=== PATIENT | female | born 1995 | race Caucasian/White ===

== ENCOUNTER 2024-11-04 10:57 | Emergency (ER) | payer OTHER, SELFPAY ==
[2024-11-04 11:04] VITALS: BP 146/102; PULSE 66; O2SAT 99
[2024-11-04 11:05] VITALS: BP 146/106; PULSE 80; RESP 16; TEMP 36.9; O2SAT 98
--- NOTE | 2024-11-04 11:12 | XR_ITS ---
FINAL REPORT CLINICAL HISTORY: Injury, right 5th metacarpal FINDINGS: RIGHT HAND 2 views were obtained. There is no acute fracture or dislocation. Visualized joint spaces are normally aligned. Soft tissues are unremarkable. IMPRESSION: No acute bony abnormality. Reviewed, Interpreted and Dictated by Sarah Moon MD Transcribed by Amber Luna Authenticated and [facility]
--- NOTE | 2024-11-04 11:13 | [facility].EDGENADL ---
Discharge Plan Disposition Patient Disposition: Home, Self-Care Referrals Follow up/Referrals: Provider,Referral, [Primary Care Provider, Medical] - See instructions Activity Restrictions/Add. Instructions Additional Instructions/Restrictions: There are no fractures noted on your x-rays today. You have swelling and bruising in this area that will likely improve over the next few days. Continue to move the hand and wrist is much as he can to keep it from getting stiff. You can use Tylenol and ibuprofen to help with your pain. If you develop any new or worsening symptoms, or if you become concerned for your health for any reason, return to the emergency department for evaluation Clinical Impressions Clinical Impression: Hematoma of right hand Print Language Print Language: Slovenian Discharge ED Provider: Nash Mcelroy General Adult HPI General Chief complaint: Extremity Injury, Upper Stated complaint: R Hand Pain and swelling Time Seen by Provider: 11/04/24 11:07 Mode of Arrival: Ambulatory Source of Information: Patient Description of Symptoms (Recalled from ER Triage Doc. by RN): pt states about 3hr [employer] she hit her R hand on the stearing wheel. pt presents with edema and ecchymosis to her R hand along the side of her little finger. pt has not taken anything for the pain. pt reports her pain is 8/10 and constant. pt has full ROM in her wrist and digits. History of Present Illness HPI narrative: Ronnie Turner is a 29-year-old right handed female who presents to the emergency department for complaints of an injury to her right hand. Patient states that approximately 2 hours ago, she received information on the phone and then hit her hand on the steering wheel. She states that she hit the back of her hand on the steering wheel intentionally and has had pain over the fifth metacarpal area ever since. She has noted swelling and bruising to this area. She states that is difficult to flex her 4th and 5th digits. She denies any numbness or tingling. She denies any other injuries or trauma. She took a Tylenol when this initially happened but states that it has not helped. Related Data Allergies Allergy/AdvReac Type Severity Reaction Status Date / Time metoclopramide (From Reglan) AdvReac Anxiety Verified 11/04/24 11:10 [facility] Disclaimer: The information contained in this section may have been updated after the patient was seen, as this information can be updated by other users. Social History Smoking Status: Current every day smoker alcohol intake: never current occupational status: employed Travel in the last 8 weeks?: None ROS Obtained: Yes Systems reviewed as appropriate & no additional complaints except as documented Physical Exam General General appearance: alert and in no apparent distress Head Head exam: atraumatic Eye Eye exam: Present normal appearance ENT ENT exam: Present normal external ear exam Neck Neck exam: Present full ROM Chest Chest inspection: Present symmetric chest wall rise Respiratory Respiratory exam: Present normal lung sounds bilaterally; Absent respiratory distress Cardiovascular Cardiovascular exam: Present regular rate and normal rhythm Abdominal Exam Abdominal exam: Present soft; Absent tenderness or guarding Extremities Exam Extremities exam: Present normal inspection Expanded Upper Extremity Exam Right: Hand L/R back image:  1. Swelling, ecchymosis, tenderness Back Exam Back exam: Present normal inspection Neurological Exam Neurological exam: Present alert and oriented X3 Psychiatric Psychiatric exam: Present normal affect Skin Skin exam: Present warm and dry Medical Decision Making Medical Records Screening: Per USPSTF and CDC recommendations, given the prevalence of disease in our region, it is our hospital?s policy to screen for HIV and viral Hepatitis for all patients aged 18 and over and those with ongoing risk factors. Shahbaz Inquiry Pt receiving controlled substance: No Vital Signs: 11/04/24 11:04 11/04/24 11:05 11/04/24 12:35 Temperature 98.4 F Temperature Source Oral Pulse Rate 66 67 Pulse Rate [Left] 80 Respiratory Rate 16 Blood Pressure 146/102 H 130/88 Blood Pressure [Left Arm] 146/106 H Blood Pressure Mean [Left Arm] 119 Blood Pressure Source [Left Arm] Automatic Cuff Blood Pressure Position [Left Arm] Sitting 02 Sat by Pulse Oximetry 99 98 98 Oxygen Delivery Method Room Air Room Air Orders (Tests/Meds): ED MEDICATIONS Discontinued Medications Generic Name Dose Route Start Last Admin Trade Name Freq PRN Reason Stop Dose Admin Ibuprofen 800 mg 11/04/24 11:13 11/04/24 11:18 Ibuprofen 800 Mg Tablet PO 11/04/24 11:14 800 mg ONCE ONE Administration ORDERS Category Date Time Status Hand XR right 2 views [XR hand RT 2V] Stat Exams 11/04/24 11:12 Taken Medical Decision Narrative: Ronnie Turner is a 29-year-old right handed female who presents to the emergency department for complaints of an injury to her right hand. Patient states that approximately 2 hours ago, she received information on the phone and then hit her hand on the steering wheel. She states that she hit the back of her hand on the steering wheel intentionally and has had pain over the fifth metacarpal area ever since. She has noted swelling and bruising to this area. She states that is difficult to flex her 4th and 5th digits. She denies any numbness or tingling. She denies any other injuries or trauma. She took a Tylenol when this initially happened but states that it has not helped. On arrival, patient is hypertensive with blood pressure 146/106, hemodynamically stable with normal heart rate, afebrile, saturation 98% SpO2. Physical exam, as stated above, revealed an overall well-appearing female in no distress. She has some tenderness and swelling and bruising over the right fifth metacarpal area on the dorsal aspect of her hand. Flexor and extension function of all fingers appears to be intact, however it is somewhat limited with flexion at the base of the 4th and 5th fingers likely secondary to pain. Less than 2-second capillary refill. Sensation grossly intact. 2+ radial pulses. Differential diagnosis includes, but is not limited to: Fracture, dislocation, hematoma, soft tissue injury, among others. The most morbid conditions were considered and workup was based on these. Workup in the emergency room included: A right hand x-rays. Patient was administered 800 g of ibuprofen. X-ray imaging interpreted by me personally. No acute fracture or dislocation. There is soft tissue swelling along the lateral aspect of the fifth metacarpal. See final radiology report for details. There is low concern for neurovascular compromise and patient likely has a hematoma as the source of her symptoms. Will recommend Tylenol and ibuprofen. No indication for splinting at this time. Recommended ice/heating pads to help with symptoms. Return precautions were given. All questions were answered. She demonstrated understanding and was in agreement this plan. She was then discharged to the emergency department in stable condition. Critical Care Critical Care Time Critical Care Time: No
[2024-11-04] MEDS: IBUPROFEN 800 MG TABLET PO (11:18)
--- OUTSIDE RECORDS SUMMARY | 2024-11-04 11:37 | XMS_ITS | Clinical Summary ---
Author Organization Drive [facility] Address [address] [place] [phone] Phone Care Team Providers Care Lamp Shades Supervisor Name Role Phone Keenan FLORES, Graciela Gray Primary Care Physic shin Conditions or Problems Problem Name Problem Code Onset Date Status Entry Date Provider Comment Standard Description Annotate Myocardial infarction ([place]) 99953401 (SNOMED CT) 04/08 Active 04/08 Chalo Marie MD Myocardial infarction Body mass index (BMI) 24.0-24.9; adult Z68.24 (ICD-10-CM ) 04/08 Active 04/08 Chalo Marie MD Body mass index [BMI] 24.0-24.9, adult Body mass index (BMI) 25.0-25.9; adult Z68.25 (ICD-10-CM ) 11/03 Correction 11/03 Chalo Marie MD Body mass index [BMI] 25.0-25.9, adult Pulmonary nodule 605948956 (SNOMED CT) 04/08 Active 04/08 Chalo Marie MD Solitary nodule of lung Heart failure with Left Ventricular Ejection Fraction (LVEF) 41-49% 08876699 (SNOMED CT) 04/08 Active 04/08 Chalo Marie MD Heart failure Body mass index (BMI) 25.0-25.9; adult Z68.25 (ICD-10-CM ) 11/03 Removed 11/03 Graciela Hussein APRN Body mass index [BMI] 25.0-25.9, adult Body mass index (BMI) 31.0-31.9; adult Z68.31 (ICD-10-CM ) 08/19 Correction 08/19 [facility] Body mass index [BMI] 31.0-31.9, adult Indigestion 958306279 (SNOMED CT) 11/03 Active 11/03 [facility] Indigestion Annual physical examination, general 667154904 (SNOMED CT) 11/03 Active 11/03 Graciela [facility] General examination of patient Tobacco User 700815617 (SNOMED CT) 08/19 Active 08/19 [facility] Tobacco user Tobacco abuse 84928166 (SNOMED CT) 08/19 Active 08/19 [facility] Tobacco dependence syndrome Body mass index (BMI) 31.0-31.9; adult Z68.31 (ICD-10-CM ) 08/19 Removed 08/19 [facility] Body mass index [BMI] 31.0-31.9, adult Body mass index (BMI) 33.0-33.9; adult Z68.33 (ICD-10-CM ) 03/17 Correction 03/17 [facility] Body mass index [BMI] 33.0-33.9, adult Opioid dependence, uncomplicate d 96084193 (SNOMED CT) 08/19 Active 08/19 [facility] Opioid dependence Health screening 35631481 (SNOMED CT) 04/25 Inactive 04/25 Eli Guardado [employer]ARM EQUIPMENT MECH[employer]IC APPRENTICE Specialized medical examination Counseling for nutrition Z71.3 (ICD-10-CM ) 04/25 Inactive 04/25 Eli Guardado FARM EQUIPMENT MECHANIC APPRENTICE Dietary counseling and surveillance Epigastric pain 22992712 (SNOMED CT) 04/25 Inactive 04/25 Eli Guardado FARM EQUIPMENT MECHANIC APPRENTICE Epigastric pain Cyst 108162711 (SNOMED CT) 03/17 Inactive 03/17 Eli Guardado APRN Cyst of skin Body mass index (BMI) 33.0-33.9; adult Z68.33 (ICD-10-CM ) 03/17 Removed 03/17 Eli Guardado APRN Body mass index [BMI] 33.0-33.9, adult Health screening 08632402 (SNOMED CT) 03/17 Inactive 03/17 Eli Guardado MARK Specialized medical examination Need for prophylactic immunotherap y 346022363 (SNOMED CT) 03/17 Inactive 03/17 Eli Guardado [employer]ARM EQUIPMENT MECHANIC APPRENTICE Prophylactic immunotherapy Establish care or get acquainted visit 078277951 (SNOMED CT) 03/17 Inactive 03/17 Eli Guardado MARK Procedure carried out on subject Family History of Alcoholism 218474777 (SNOMED CT) 03/17 Active 03/17 Eli Guardado MARK Family history of alcoholism Medications Medication Instructions Start Date Stop Date Generic Name NDC Provider CARVEDILOL 3.125 MG TABS Take 1 tablet by mouth twice a day carvedilol 43755295056 Domonique Llamas APRN CARVEDILOL 3.125 MG TABS carvedilol 10148529726 Chalo Marie MD AMOXICILLIN-POT CLAVULANATE 875-125 MG TABS Take 1 tablet by mouth twice a day amoxicillin-pot clavulanate 28452938596 Chalo Marie MD ATORVASTATIN CALCIUM 10 MG TABS Take 1 tablet by mouth every evening atorvastatin 27468540734 Chalo Marie MD ASPIRIN 81 MG TBEC Take 1 tablet by mouth once a day aspirin 06919019201 Chalo Marie MD CARVEDILOL 3.125 MG TABS Take 1 tablet by mouth twice a day carvedilol 92849024919 Chalo Marie MD CARVEDILOL 3.125 MG TABS carvedilol 63345478253 Gretchen Triny MA PEPCID AC MAXIMUM STRENGTH 20 MG TABS Take 1 tablet by mouth twice a day as needed FOR HEARTBURN OR REFLUX famotidine 75000126233 [facility] 800 MG TABS Take 1 tablet by mouth every six hours as needed for pain for 5-7 days ibuprofen 51288319574 Vanessa Guerrero DMD Augmentin 500-125 mg tablet Take 1 tablet by mouth twice a day amoxicillin-pot clavulanate 00291109665 Vanessa Guerrero DMD AMOXICILLIN 500 MG CAPS Take 1 capsule by mouth three times a day amoxicillin 37247178726 Vanessa Guerrero DMD IBU 800 MG TABS Take 1 tablet by mouth every eight hours as needed for pain Take with food ibuprofen 08763361339 Vanessa Guerrero DMD ADDERALL XR 30 MG [id number] Take 1 capsule by mouth every morning dextroamphetami ne-amphetamine 22300425399 [facility] AL[facility] 0.5 MG TABS Take 2 tablet by mouth once a day as needed alprazolam 45718447602 [facility] CLONIDINE HCL 0.1 MG TABS Take 1 tablet by mouth once a day clonidine hcl 51263983028 [facility] TRAZODONE HCL 100 MG TABS Take 1 tablet by mouth every night trazodone 57929899057 [facility] SUBOXONE 8-[address] 2 tablet under tongue once a day buprenorphine-n aloxone 34683137303 [facility] PLUS 27-1 MG TABS Take 1 tablet by mouth once a day or covered equivalent pnv,calcium 52-szwf-aeqrv acid 16304406111 [facility] OMEPRAZOLE 20 MG CPDR TAKE 1 CAPSULE BY MOUTH ONCE A DAY OMEPRAZOLE 63774940994 Eli Guardado APRN TRAZODONE HCL 100 MG TABS TAKE 1 TABLET BY MOUTH EVERY NIGHT AT BEDTIME TRAZODONE HCL 77514850463 Eli Guardado APRN CLONIDINE HCL 0.1 MG TABS TAKE 1 TABLET BY MOUTH 1 TIME A DAY CLONIDINE HCL 70038244760 Eli Guardado APRN ALPRAZOLAM 0.5 MG TABS TAKE 2 TABLET BY MOUTH once A DAY NEEDED FOR ANXIety ALPRAZOLAM 49979027806 Eli Guardado APRN ADDERALL XR 30 MG [id number] TAKE 1 CAPSULE BY MOUTH EACH MORNING AMPHETAMINE-DEX TROAMPHETAMINE 93167482817 Eli Guardado APRN Medications Administered No information available. Allergies, Adverse Reactions, Alerts Allergy Name Reaction Description Start Date Severity Statu s Provider REGLAN Critical Active Eli summers APRN Results Date Name Value Unit Range Flag Description Lab Report: Comprehensive Me tabolic Panel LIPASE SERUM 13 U/L 13-60 lipase, serum NTL BILI TOT 0.4 mg/dL 0.1-1.3 bilirubi n, , total ALBUMIN 4.2 g/dL 3.5-5.2 Albumin [Mass/volume] in Serum or Plasma CO2 TOTAL 22 mmol/L 22-29 carbon diox joe, serum, total Office Visit: 24yro old fema le abdominal pain RM 11 H.PYLORI SCN negative Helicob acter pylori screen, serum Lab Report: LIPID PANEL WITH REFLEX TO DIRECT LDL, LIPID PANEL WITH REFL ... ANTI-HAV IGM REACTIVE NON-REACTI A Hepa titis A virus IgM Ab [Units/volume] in Serum HGBA1C 5.2 % OF TOTAL HGB % <5.7 N Hemoglobin A1c/Hemoglobin, total in Blood - % VIT D 25-OH 28 ng/mL 30-100 L 25-Hydrox ycalcifero l [Mass/volume] in Serum or Plasma TSH 0.75 u[iU]/m L N Thyrotropin [Units/volume] in Serum or Plasma HEP C AB NON-REACTIVE NON-REACTI N Hepa titis C virus Ab [Presence] in Serum HB CORE IGM NON-REACTIVE NON-REACTI N H epatitis B virus core IgG+IgM Ab [Presence] in Serum or Plasma by Immunoassay HBSAG NON-REACTIVE NON-REACTI N Hepat itis B virus surface Ag [Presence] in Serum or Plasma by Confirmatory method BASO % MANU 0.5 % N basophils as percent of blood leukocytes, manual count EOS % MANU 1.5 % N eosinophil s as percent of blood leukocytes, manual count LYMPH% P BLD 31.6 % N lymphocy sergio as percent of blood leukocytes ABS BASOS 50 {Cells} /uL 0-200 N Basophils [#/volume] in Blood ABS EOS 150 {Cells} /uL 15-500 N Eosinophils [#/volume] in Blood ABS MONOS 660 {Cells} /uL 200-950 N Monocytes [#/volume] in Blood ABSLYMPHCT 3160 {Cells} /uL 850-3900 N Lymphocytes [#/volume] in Blood ABS NEUTROPH 5980 CELLS/UL 10*3/uL 0800-0975 N Neutrophils [#/volume] in Blood PLATELETK/UL 268 THOUSAND/UL 10*3/uL 140-400 N platelet count OL-MCHC 34.3 g/dL 32.0-36.0 N mean corpus cular hemoglobin concentration, rbc RBC M/UL 5.09 MILLION/UL 10*6/uL 3.80-5.10 N red blood count WBC CT BLOOD 10.0 10*3/uL 3.8-10.8 N leukocy te count, blood SGPT (ALT) 13 U/L 6-29 N Alanine aminotransferase [Enzymatic activity/volume] in Serum or Plasma SGOT (AST) 13 U/L 10-30 N Aspartate aminotransferase [Enzymatic activity/volume] in Serum or Plasma ALK PHOS 52 U/L 31-125 N Alkaline phosphatase [Enzymatic activity/volume] in Blood BILI TOTAL 0.4 mg/dL 0.2-1.2 N Bilirubin. total [Mass/volume] in Serum or Plasma A/G RATIO 1.5 (calc) 1.0-2.5 N Albumin/ Globulin [Mass Ratio] in Serum or Plasma GLOBULIN TOT 3.0 G/DL (CALC) g/dL 1.9-3.7 N Globulin [Mass/volume] in Serum ALBUMIN EOP 4.5 g/dL 3.6-5.1 N Albumin [Mass/volume] in Serum or Plasma by Electrophoresis PROTEIN, TOT 7.5 g/dL 6.1-8.1 N Protein [Mass/volume] in Serum or Plasma CHLORIDE BLD 108 mmol/L 98-110 N chloride , blood BUN/CREAT NOT APPLICABLE (calc) 6-22 Urea nitrogen/Creatinine [Mass Ratio] in Serum or Plasma EGFR IF AFA 148 mL/min/ 1.73m2 >OR = 60 N Glomerular filtration rate/1.73 sq M.predicted among blacks [Volume Rate/Area] in Serum, Plasma or Blood by Creatinine-based formula (MDRD) EGFR 128 mL/min/ 1.73m2 >OR = 60 N Glomerular filtration rate/1.73 sq M.predicted [Volume Rate/Area] in Serum, Plasma or Blood by Creatinine-based formula (MDRD) GLUCOSE SER 80 mg/dL 65-99 N Glucose [Mass/volume] in Serum or Plasma NON-HDL CHOL 118 MG/DL (CALC) mg/dL <130 N cholesterol, non-HDL, total CHOL/HDL % 3.7 (calc) <5.0 N cholest ileana/HDL ratio, serum, percent LDL 102 MG/DL (CALC) mg/dL H Cholesterol in L DL [Mass/volume] in Serum or Plasma - mg/dL TRIGLYC TOT 72 mg/dL <150 N Triglycer joe [Mass/volume] in Serum or Plasma - mg/dL HDL 44 mg/dL >OR = 50 L Cholesterol in HDL [Mass/volume] in Serum or Plasma - mg/dL CHOLESTEROL 162 mg/dL <200 N Cholester ol [Mass/volume] in Serum or Plasma - mg/dL Lab Report: CBC WITH DIFF HYAL CAST UR 6 /[LPF] 0-2 H Hyaline casts [#/area] in Urine sediment by Microscopy low power field BACTERIA URN 4+ Negative A Bacteri a [#/area] in Urine sediment by Microscopy high power field MUCUS URINE 4+ Mucus [Pr esence] in Urine sediment by Light microscopy EPITH CELL U 4+ /LPF /[HPF] epitheli al cells, squamous, urine WBCS MICRO U 2 /HPF {Cells} /[HPF] 0-4 WBC urine on microscopy SPEC GR URIN 1.018 no units 1.001-1.035 Specific gravity of Urine by Test strip WBC DIPSTK U Negative Negative Leukoc yte esterase [Presence] in Urine by Test strip NITRITE UA Negative Negative Nitrite Urine UROBILINO UR Normal mg/dL {Ehrlic h_U}/dL <=1 urobilinogen, urine PROTEIN UR 100 mg/dL Negative A protein, total urine random PH URINE 5.0 pH 5.0-8.0 pH of Urine by Test strip RBC UR 1 /[HPF] 0-3 erythrocytes, urine, microscopic KETONES UR Negative Negative KETONES, URINE GLUCOSE UA 50 mg/dL Negative A Glucose [Mass/volume] in Urine by Test strip APPEARANCE U Cloudy Clear A Appearan ce of Urine UA COLOR Estella Color of Uri ne Lab Report: Human Chorionic Gonadotropin Quant ABO/RH A NEG blood type wi th RH factor Lab Report: CBC WITH DIFF BETA-HCG QN 1540 m[iU]/m L <5 H beta HCG, serum, quantitative EGFR NOT AFA 124 mL/min/ 1.73m2 >=60 Glomerular filtration rate/1.73 sq M.predicted among non-blacks [Volume Rate/Area] in Serum, Plasma or Blood by Creatinine-based formula (MDRD) CREATININE 0.67 mg/dL 0.51-1.30 Creatini ne [Mass/volume] in Serum or Plasma BUN 8 mg/dL 6-20 Urea nitrogen [Mass/volume] in Serum or Plasma BG RANDOM 90 mg/dL 74-100 Glucose [Mass/volume] in Blood CALCIUM 10.1 mg/dL 8.6-10.4 Calcium [Moles/volume] in Serum or Plasma ANION GAP 13 mmol/L 7-16 Anion gap 4 in Serum or Plasma CO2 22 mmol/L 22-29 Carbon dioxid e, total [Moles/volume] in Venous blood CHLORIDE 103 mmol/L 98-107 Chloride [Moles/volume] in Serum or Plasma POTASSIUM 3.7 mmol/L 3.5-5.0 Potassium [Moles/volume] in Serum or Plasma SODIUM 138 mmol/L 136-145 Sodium [Moles/volume] in Serum or Plasma EOS COUNT 0.1 X10(3)/MCL 10*3/mm 3 0.0-0.5 eosinophil count, blood MONOSCT AUTO 0.6 X10(3)/MCL 10*3/uL 0.0-1.3 Monocytes [#/volume] in Blood by Automated count LYMPH COUNT 2.4 X10(3)/MCL 10*3/mm 3 0.6-4.8 lymphocyte count, blood NEUTRO COUNT 7.7 X10(3)/MCL 10*3/mm 3 1.8-7.7 neutrophil count, blood % BASO AUTO 0.5 % basophils as percent of blood leukocytes, automated count EOSINOPHIL % 1.1 % Eosinoph ils/100 leukocytes in Blood by Manual count MONOCYTE % 5.5 % Monocytes/ 100 leukocytes in Blood by Automated count LYMPHCT AUTO 22.0 % 10*3/mm 3 Lymphocytes [#/volume] in Blood by Automated count PMN % 70.9 % Neutrophils/1 00 leukocytes in Blood by Automated count Lab Report: CBC MPV 12.3 fL 8.8-12.5 Platelet gwendolyn n volume [Entitic volume] in Blood by Dea PLATELETS 259 X10(3)/MCL 10*3/mm 3 155-369 Platelets [#/volume] in Blood by Automated count RDW 13.3 % <=14.9 Erythrocyte distribution width [Ratio] by Automated count MCHC 32.1 G/DL 30.7-35.5 MCHC [Mass/ volume] by Automated count MCH 28.2 pg 26.0-34.0 MCH [Entiti c mass] by Automated count MCV 87.8 fL 80.0-100.0 MCV [Entit ic volume] by Automated count HCT 43.0 % 34.0-45.0 Hematocrit [Volume Fraction] of Blood by Automated count HGB 13.8 g/dL 11.2-15.7 Hemoglobin [Mass/volume] in Blood RBC 4.90 X10(6)/MCL 10*6/mm 3 3.90-5.20 Erythrocytes [#/volume] in Blood by Automated count WBC 11.6 X10(3)/MCL 10*3/mm 3 3.7-10.3 H Leukocytes [#/volume] in Blood by Automated count Plan of Care Type Date Detail Referral [facility], [address] [place] [address] [address], [place], [address] Referral [facility], [address] [facility], [place], [address] Pending order H-pylori -Medica l Only 385[address] Pending order T1 CBC with diff Pending order T1 CMP Pending order T1 HGBA1c Pending order T1 Lipase Pending order T1 TSH reflex to free T4 Patient education Patient Educat ion Given Patient education Patient Educat ion Given Patient education Patient Educat ion Given Patient education Patient Educat ion Given Patient education Patient Educat ion Given Patient education Patient Educat ion Given Patient education Patient Educat ion Given Procedures Code Procedure Name Date Entry Date [facility] [id number] Medication Reconciliation [id number] Former smoker 4004F Patient screened for tobacco use and received tobacco cessation intervention CPT-3074F Most recent systolic blood pressure <130 mm Hg CPT-3078F Most recent diastoli c blood pressure <80 mm Hg CPT-3074F Most recent systolic blood pressure <130 mm Hg CPT-3078F Most recent diastoli c blood pressure <80 mm Hg [id number] Medication Reconciliation SCT-[id number] Giving encouragement to exercise [id number] Dietary management education/guidance/counseling CPT-3074F Most recent systolic blood pressure <130 mm Hg CPT-3078F Most recent diastoli c blood pressure <80 mm Hg CPT II 4004F Patient screened for tobacco use and received tobacco cessation intervention [id number] Medication Reconciliation SCT-[id number] Giving encouragement to exercise SCT-[id number] Medication Reconciliation CPT-3074F Most recent systolic blood pressure <130 mm Hg CPT-3078F Most recent diastoli c blood pressure <80 mm Hg [facility] 512 T1 Hep A IGM [facility] 4848 T1 Hep B Core IgM Antibody 2 [facility] 499 T1 Hep B Surf Ab Qual HBsAb [facility] 8475 T2 Hep B Surf Ab Quant HBsAb [facility] 498 T1 Hep B Surf AG HBsAg w. Refl [facility] 8472 T1 Hep C Ab [facility] 6399 T1 CBC with diff [facility] 90597 T1 CMP [facility] 496 T1 HGBA1c [facility] 58792 T1 Lipid Panel [facility] 10409 T1 TSH reflex to free T4 202 [facility] 07851 T2 Vitamin D 25 Hydroxy 2019 CPT-01696 H-pylori -Medical Only [address] [facility] [id number] Medication Reconciliation CPT-3074F Most recent systolic blood pressure <130 mm Hg CPT-3078F Most recent diastoli c blood pressure <80 mm Hg SCT-[id number] Giving encouragement to exercise SCT-[id number] Dietary management education/guidance/counseling [facility] 6399 T1 CBC with diff [facility] 67158 T1 CMP [facility] 496 T1 HGBA1c [facility] 606 T1 Lipase [facility] 44658 T1 TSH reflex to free T4 201 11/07/[address] [facility] Dermat[facility] Vital Signs Date Name Value Unit Description BMI (Body Mass Index) 24.05 kg/m2 Bod y Mass Index (Ratio) Body Temperature 97 [degF] temperat ure E&M Body Temperature 36.11 Ginny temperat ure in centigrade E&M BP Diastolic 79 mm[Hg] blood pressu re, diastolic BP Systolic 125 mm[Hg] blood pressur e, systolic BSA (Body Surface Area) 1.73 b ramiro surface area Heart Rate 64 /min pulse rate Height 65 [in_us] height E&M Height 165.1 cm height in cent imeters E&M Weight Measured 144 [lb_av] weight E& M Weight Measured 144 [lb_av] weight E& M Weight Measured 65.45 kg weight in kilograms E&M Respiratory Rate 18 /min respirat ory rate E&M Immunizations No information available. Advance Directives No information available.
--- OUTSIDE RECORDS SUMMARY | 2024-11-04 11:37 | XMS_ITS | Clinical Summary ---
Author Organization [facility] Address [facility] [place] [address] Care Team Providers Care Assistant Boys Track Coach Name Role Phone Pcp, No Primary Care Provider [phone] Source Comments This information has been disclosed to you from confidential records protectedfrom disclosure by state law. You shall make no further disclosure of thisinformation without the specific, written, and informed release of theindividual to whom it pertains, or as otherwise permitted by law. A generalauthorization for the release of medical or other information is not sufficientfor the purposes of therelease of HIV test results or diagnoses. [id number] Allergies No known active allergies Medications No known medications Social History Tobacco Use Types Packs/Day Years Used Date Smoking Tobacco: Never Assessed Comments Unknown Sex and Gender Information Value Date Recorded Sex Assigned at Not on file Legal Sex Female 9:39 PM EST Gender Identity Not on file Sexual Orientation Not on file Last Filed Vital Signs Vital Sign Reading Time Taken Comments Blood Pressure 137/77 08/19/2023 7:25 PM EDT Pulse 58 08/19/2023 7:25 PM EDT Temperature 36.6 C (97.9 F) 08/19/2023 7:25 PM EDT Respiratory Rate 18 08/19/2023 7:25 PM EDT Oxygen Saturation 100% 08/19/2023 7:25 PM EDT Inhaled Oxygen Concentration 100% 08/19/2023 7 :25 PM EDT Weight - - Height - - Body Mass Index - - Plan of Treatment Health Maintenance Due Date Last Done Comments Alcohol Misuse Screening 01/31/2014 Depression Screening 01/31/2014 HIV Screening 01/31/2014 Cervical Cancer Screening/Pap Smear (MyChart) 01/31/2017 Immunization: COVID-19 ( season) 2024 Immunization: Influenza (MyChart) (#1) 2024 02/12/2020, 02/18/2015 Immunization: DTaP/Tdap/Td (8 - Td or Tdap) 01/25/2025 01/25/2015, 05/28/2008, 10/17/2000, Additional history exists Immunization: Hepatitis B Completed 2020, 08/23/2020, 05/06/1997, Additional history exists Hepatitis C Screening (MyChart) Completed 08/19/2023 Immunization: Pneumococcal Aged Out N o longer eligible based on patient's age to complete this topic Procedures Procedure Name Priority Date/Time Associated Diagnosis Comments ED HCV AB REFLEX TO HCV QUANT Routine 08/19/2023 8:23 PM EDT from Last 3 Months or Most Recently Relevant to Health Maintenance Results * ED HCV Ab Reflex To HCV Quant (08/19/2023 8:23 PM EDT) HCV Ab Nonreactive Nonreactive 08/19/2023 9:30 PM EDT HEALTH LAB Comment:Health Department no tified in accordance with reportable infectious disease guidelines. HCVAB Number 0.13 0.00 - 0.79 S/CO 08/19/2023 9:30 PM EDT [facility] Serum 08/19/2023 8:23 PM EDT 08/19/2023 8:30 PM EDT us Maria Bah MD LAB BLOOD ORDERABLES Final Res ult [facility] [address] [place] [address], [facility] from Last 3 Months or Most Recently Relevant to Health Maintenance Insurance [employer] MDCD BETTER [facility] Care Teams Assistant Boys Track Coach Relationship Specialty Start Date End Date Pcp, No No Address PCP - General 05/21/23
[2024-11-04 12:35] VITALS: BP 130/88; PULSE 67; O2SAT 98
--- NOTE | 2024-11-04 12:40 | PC.NURSE ---
I called and spoke to Deric in radiology inquiring about the status of the pts XR. He states there is a prelim read and will send it to us.
[2024-11-04 12:54] VITALS: BP 130/88; PULSE 67; RESP 17; TEMP 36.7; O2SAT 98
== END 2024-11-04 12:55 | disposition home or self-care (01) ==
PROVIDERS: Emergency Provider Student in an Organized Health Care Education/Training Program
DX: S60.221A Contusion of right hand, initial encounter (principal)
CPT/HCPCS: 73120; 99283; 99284